=== PATIENT | male | born 1980 | race Caucasian/White ===

== ENCOUNTER 2023-09-16 13:18 | Emergency (ER) | payer OTHER, SELFPAY ==
[2023-09-16 13:34] VITALS: BP 119/81; PULSE 97; RESP 16; TEMP 36.7; O2SAT 98; BMI 29.8
--- NOTE | 2023-09-16 13:36 | ED.WOUNDLAC ---
HPI - Wound/Laceration General Chief Complaint: Wound/Laceration Stated Complaint: L Leg Lac Work Injury Time Seen by Provider: 09/16/23 13:37 Source: patient Mode of arrival: ambulatory Limitations: no limitations History of Present Illness HPI narrative: Natalee is a 43 year old male presenting today for evaluation of a laceration sustained at work just prior to arrival. He reports that he was using a saw and sustained a laceration to his left posterior thigh. Unknown of last tetanus. Applied shirt as a tourniquet prior to arrival. Able to ambulate on both lower extremities. Reports pain to localized laceration. Onset (ago): hour(s) Location: other (left thigh) Extremity Location: left: thigh Place: work Context: accidental Associated symptoms: pain Treatments prior to arrival: tourniquet Related Data Allergies Allergy/AdvReac Type Severity Reaction Status Date / Time No Known Allergies Allergy Verified 09/16/23 13:33 Review of Systems Review of Systems: Yes all other systems are reviewed and are negative PMFSH Social History Social History Advance Directives: No Physical Exam Vital Signs: Vital Signs: Last Vital Signs Temp 98.0 F 09/16/23 13:34 Pulse 97 09/16/23 13:34 Resp 16 09/16/23 13:34 BP 119/81 09/16/23 13:34 Pulse Ox 98 09/16/23 13:34 O2 Del Method Room Air 09/16/23 13:34 BMI result Body Mass Index 29.8 Appearance: Alert. Oriented X3. No acute distress. Head: normocephalic, atraumatic. Skin: Skin warm and dry. Normal skin color. Normal skin turgor. No rashes. 7cm laceration on left anterior thigh, fascia exposed Extremities: No lower extremity edema. No joint swelling. Neuro/psych: Oriented X 3. Normal speech and cognition. Course Course Course Narrative: This is a Rapid Medical Examination (RME) in triage, full HPI, ROS, assessment and plan per primary provider in the Main ED. 43 yo male presents to the ER for evaluation of a 4-5 inch laceration of the left upper thigh from a saw while at work 40 minutes ago. Bleeding controlled on arrival. Needs suture repair. Tdap ordered Medications Administered Discontinued Medications Generic Name Dose Route Start Last Admin Trade Name Freq PRN Reason Stop Dose Admin Diphtheria/Tetanus/Acell Pertussis 0.5 ml 09/16/23 13:35 09/16/23 13:52 Diphth,Pertus(Acell),Tet Adult 0.5 Ml Syringe IM 09/16/23 13:36 0.5 ml .ONCE ONE Administration Lidocaine HCl 20 ml 09/16/23 14:01 09/16/23 14:42 Lidocaine Hcl 1 % 20 Ml Vial INFILTRATI 09/16/23 14:02 20 ml ONCE ONE Administration Medical Decision Making Medical Decision Making MDM Narrative: Natalee is a 43 year old male presenting today for evaluation of a laceration to the left thigh, sustained at work just prior to arrival. Mechanism of action was a saw. On exam, he has a 7cm linear laceration to his left anterior thigh. No muscle involvement. Wound irrigated and injected lidocaine 1% in sterile fashion. Wound was approximated and closed with 9 simple interupted sutures using 4-0 monofilament nylon. Patient tolerated well and is stable for discharge. Differential Diagnosis Differential Diagnoses: The differential diagnosis associated with the presentation includes superficial laceration, deep laceration, lacteration with arterial involvement Prescription Management I considered prescription management with: Pain Medication Procedures Laceration Laceration 1: Site: lower extremity Side (If applicable): left Size (cm): 7 Description: linear Depth: simple, single layer Local Anesthetic: lidocaine 1% Amount of anesthesia used (mL): 6 Pre-repair: irrigated extensively Skin layer closed with: nylon Size (cm): 4-0 Number of sutures: 9 Technique: simple, interrupted Discharge Plan Discharge Clinical Impression: Laceration Patient Disposition: Home, Self-Care Instructions: Laceration (DC) Additional Instructions: 9 stiches were used to close your wound today You will need your stitches out in 10 days. See you doctor for this or come back to the ER and we will remove them. Do not get wet for 24 hours, after that you can briefly wash with soap and water then pat dry. Keep wound clean and covered. Do not submerge in water, no swimming. If you develop signs of infection including increased pain, swelling, redness or drainage of pus come back to the ER for further evaluation. Discharge Date/Time: 09/16/23 14:54
[2023-09-16] MEDS: Diphth,Pertus(ACell),Tet Adult 0.5 ML SYRINGE IM (13:52)
[2023-09-16] MEDS: Lidocaine HCl 1 % 20 ML VIAL INFILTRATI (14:42)
== END 2023-09-16 14:54 | disposition home or self-care (01) ==
PROVIDERS: Emergency Provider Emergency Medicine
DX: S71.112A Laceration without foreign body, left thigh, initial encounter (principal); W27.0XXA Contact with workbench tool, initial encounter; Y93.9 Activity, unspecified; Y92.89 Other specified places as the place of occurrence of the external cause; Y99.0 Civilian activity done for income or pay
CPT/HCPCS: 12002; 90471; 90715; 99281; 99284

== ENCOUNTER 2023-09-29 15:29 | Emergency (ER) | payer OTHER, SELFPAY ==
[2023-09-29 15:50] VITALS: BP 117/80; PULSE 86; RESP 16; TEMP 36.8; O2SAT 98; BMI 31.1
--- NOTE | 2023-09-29 16:01 | ED_ITS ---
HPI - General Adult General Chief complaint: General Medical Stated complaint: suture removal Time Seen by Provider: 09/29/23 16:01 Source: patient, RN notes reviewed and old records reviewed Mode of arrival: ambulatory Limitations: no limitations History of Present Illness HPI narrative: 43-year-old male presents for evaluation of suture removal. Patient was seen here 13 days ago for laceration to his left thigh. This was done by a brian tip saw Patient had 9 sutures placed The patient reports that he has been cleaning the wound himself and applying dressing changes every day He reports a small amount of drainage but no pain, no redness and denies fevers Related Data Allergies Allergy/AdvReac Type Severity Reaction Status Date / Time No Known Allergies Allergy Verified 09/29/23 15:50 Review of Systems Integumentary/Breasts: Skin/Breast: Reports wounds PMFSH Social History Social History Advance Directives: No Advance Directives Information Provided: No Physical Exam ED Vital Signs: Vital Signs - 24 hr 09/29/23 15:50 09/29/23 16:03 Temperature 98.2 F 98.2 F Pulse Rate 86 86 Respiratory Rate 16 16 Blood Pressure 117/80 117/80 Pulse Oximetry 98 96 Oxygen Delivery Method Room Air Room Air BMI result Body Mass Index 31.1 Skin Other: Healing 7 cm laceration to the left lateral thigh. [address] There is minimal serosanguineous drainage, no purulent drainage, no surrounding erythema, no fluctuance, no tenderness to palpation Medical Decision Making Medical Decision Making MDM Narrative: I was easily able to remove 9 sutures, there was no dehiscence, the wound healed well. No evidence of infection. Patient is discharged with outpatient follow- up Differential Diagnosis Differential Diagnoses: The differential diagnosis associated with the presentation includes Wound check Suture removal Laceration Skin tear Discharge Plan Discharge Clinical Impression: Encounter for removal of sutures Patient Disposition: Home, Self-Care Instructions: Stitches Removal (ED) Additional Instructions: You had 9 sutures removed today. You may apply topical antibiotics such as bacitracin, Neosporin, or triple antibiotic every other day Follow-up with your primary doctor Return for new or worsening symptoms, especially fevers, increased pain, redness or drainage from the wound Interventions: ED Discharge Assessment Last Done: 09/29/23 16:03 Discharge Date/Time: 09/29/23 16:09 Print Language: German
[2023-09-29 16:03] VITALS: BP 117/80; PULSE 86; RESP 16; TEMP 36.8; O2SAT 96
== END 2023-09-29 16:09 | disposition home or self-care (01) ==
LOC: HO.ED 16:07
PROVIDERS: Emergency Provider Emergency Medicine; PCP Student in an Organized Health Care Education/Training Program
DX: S71.12 Laceration with foreign body of thigh (principal); W29.8XXD Contact with other powered hand tools and household machinery, subsequent encounter
CPT/HCPCS: 99282